=== PATIENT | male | born 1975 | race Caucasian/White ===

== ENCOUNTER → 2024-05-24 | Outpatient (CLI) | payer OTHER ==
[~2024-05-24] MED LIST: Naprosyn500 MG PO
[2024-05-25 20:30] LABS: COTININE, URN, SCREEN Negative ng/mL (Cutoff 100)
== END ==
LOC: LAB SHORT 15:24 → LAB 15:24 → LAB FUT 05-18 16:40
PROVIDERS: Podiatrist Foot & Ankle Surgery
DX: Z87.891 Personal history of nicotine dependence (principal)

== ENCOUNTER 2024-09-22 06:06 | Day surgery (SDC) | payer OTHER ==
[~2024-09-22] VITALS: Ht 165.1 cm; Wt 70.7 kg
[2024-09-22] MEDS ORDERED: Dexamethasone Sod Phos 10 MG/ML 1ML VIAL ONE (06:20)
[2024-09-22] MEDS ORDERED: Ondansetron HCl 2 MG / ML 2ML Vial ONE (06:20)
[2024-09-22] MEDS ORDERED: Ketorolac Tromethamine 30mg Vial ONE (06:20)
[2024-09-22] MEDS ORDERED: FentaNYL Citrate 50 MCG/ML 2 ML Injection ONE ×3 (06:21→09:28)
[2024-09-22] MEDS ORDERED: propofoL 20 ML IV ONE (06:21)
[2024-09-22] MEDS ORDERED: ESCI10 PO (06:44)
[2024-09-22] MEDS ORDERED: CeFAZolin Sodium 2,000 MG VIAL ONE (06:46)
[2024-09-22] MEDS ORDERED: Ropivacaine 0.5% HCL/PF 5 MG/ML 30ML Vial ONE (06:57)
[2024-09-22] MEDS ORDERED: Lactated Ringer's 1,000 ML IV ONE ×3 (07:00→09:55)
[2024-09-22] MEDS ORDERED: CeFAZolin Sodium 1000 mg Vial ONE (07:33)
[2024-09-22] MEDS ORDERED: EPINEPhrine HCl 1 MG/ML 1ML Amp XX ONE (07:34)
[2024-09-22] MEDS ORDERED: OxyCODONE 5 mg/Acetamin 325 mg TABLET ONE (10:19)
--- NOTE | 2024-09-22 11:41 | NUR ---
09/22/24 1141 Isael Gutierrez PT FREQUENTLY MOVING ARM DURING RECOVERY. HE REPORTED TOLERABLE 6/10 PAIN UPON D/C (FLACC 2/10) AND DENIED NAUSEA. HE APPEARED ALERT AND RELAXED UPON D/C. PT WAS INSTRUCTED TO MONITOR B/P AT HOME AND FOLLOW UP WITH PCP IF NEEDED.
[2024-09-22 11:42] VITALS: BP 161/90
== END 2024-09-22 10:58 | disposition home or self-care (01) ==
LOC: ORSCSDS 06:06
PROVIDERS: Podiatrist Foot & Ankle Surgery
PROC: 0SGM04Z Fusion of Right Metatarsal-Phalangeal Joint with Internal Fixation Device, Open Approach (ICD-10-PCS; principal; 2024-09-22 07:30)
PROC: 0SGK04Z Fusion of Right Tarsometatarsal Joint with Internal Fixation Device, Open Approach (ICD-10-PCS; principal; 2024-09-22 07:30)
PROC: 0SGP04Z Fusion of Right Toe Phalangeal Joint with Internal Fixation Device, Open Approach (ICD-10-PCS; principal; 2024-09-22 07:30)
DX: M21.611 Bunion of right foot (principal); M20.21 Hallux rigidus, right foot; M20.41 Other hammer toe(s) (acquired), right foot; F32.A Depression, unspecified; Z79.899 Other long term (current) drug therapy
CPT/HCPCS: A9270; C1713; J0171; J0690; J1100; J1885; J2405; J2704; J2795; J3010; J7120

== ENCOUNTER 2025-04-20 10:01 | Day surgery (SDC) | payer OTHER ==
[~2025-04-20] VITALS: Ht 165.1 cm; Wt 68.1 kg
[~2025-04-20 10:01] MED LIST changes: +ESCI10 PO
[2025-04-20] MEDS ORDERED: CeFAZolin Sodium 2,000 MG VIAL ONE (10:21)
[2025-04-20] MEDS ORDERED: Cymbalta20 MG PO (10:41)
[2025-04-20] MEDS ORDERED: Bupivacaine 0.5% W/EPI 1:200000 SDV 30 ML Vial ONE (10:49)
[2025-04-20] MEDS ORDERED: FentaNYL Citrate 50 MCG/ML 2 ML Injection ONE (12:12)
[2025-04-20] MEDS ORDERED: Ketorolac Tromethamine 30mg Vial ONE (12:29)
--- NOTE | 2025-04-20 12:49 | NUR ---
04/20/25 Rick Thrasher PT'S 02 97% ON RA. VSS. CAP REFILL ON SURGICAL LIMB LESS THAN THREE SECONDS. PT DENIES PAIN AND NAUSEA AT THIS TIME.
[2025-04-20 12:58] VITALS: BP 112/81
--- NOTE | 2025-04-20 13:45 | NUR ---
04/20/25 1345 Rick Tellez PT DENIES PAIN AND NAUSEA AT THIS TIME. PT AGREEABLE TO D/C HOME WITH DERICK.
== END 2025-04-20 13:43 | disposition home or self-care (01) ==
LOC: ORSCSDS 10:01
PROVIDERS: Podiatrist Foot & Ankle Surgery
PROC: 0Y6R0Z1 Detachment at Right 2nd Toe, High, Open Approach (ICD-10-PCS; principal; 2025-04-20 12:00)
DX: M20.5X1 Other deformities of toe(s) (acquired), right foot (principal); Z79.899 Other long term (current) drug therapy
CPT/HCPCS: 88305; 88311; A6253; J0690; J1885; J2704; J3010; J7120

== ENCOUNTER → 2025-04-26 | Outpatient (CLI) | payer OTHER ==
[~2025-04-26] MED LIST changes: +Cymbalta20 MG PO
[2025-04-26 16:20] LABS: BASOPHILS ABSOLUTE AUTO 0.05 K/mm3 (0.00-0.23); BASOPHILS PERCENT AUTO 1 % (0-2); EOSINOPHILS ABSOLUTE AUTO 0.31 K/mm3 (0.00-0.68); EOSINOPHILS PERCENT AUTO 4 % (0-6); Hematocrit 40.6 % (37.0-53.0); Hemoglobin 15.1 g/dL (13.5-17.5); IMMATURE GRAN ABSOLUTE AUTO 0.03 K/mm3 (0.00-0.10); IMMATURE GRAN PERCENT AUTO 0 % (0-1); LYMPHOCYTES ABSOLUTE AUTO 1.41 K/mm3 (0.84-5.20); LYMPHOCYTES PERCENT AUTO 18 % (21-46); MONOCYTES ABSOLUTE AUTO 0.48 K/mm3 (0.16-1.47); MONOCYTES PERCENT AUTO 6 % (4-13); Mean Corpuscular HGB Conc 37.2 g/dL (31.5-36.5); Mean Corpuscular Volume 90 fL (80-100); NEUTROPHILS ABSOLUTE AUTO 5.53 K/mm3 (1.96-9.15); NEUTROPHILS PERCENT AUTO 71 % (41-73); NRBC ABSOLUTE 0.00 K/mm3 (0.00-0.02); NRBC Auto 0.0 /100 WBC (0.0-0.2); Platelet Count 202 K/mm3 (150-400); RDW Coefficient Variation 14.8 % (11.7-14.2); RDW Standard Deviation 48.5 fL (35.1-46.3)
[2025-04-26 16:42] LABS: Alanine Aminotransfer (ALT/SGP 26.0 U/L (12-78); Albumin, Blood 4.2 g/dL (3.4-5.0); Albumin/Globulin Ratio 1.1 (0.8-1.8); Anion Gap 14.0 mmol/L (6-16); Aspartate Aminotrans (AST/SGOT 17.0 U/L (12-37); Bilirubin, Total 1.7 mg/dL (0.1-1.0); Blood Urea Nitrogen 14.0 mg/dL (8-24); CO2, Blood 28.0 mmol/L (21-32); Calcium, Blood 9.3 mg/dL (8.5-10.1); Chloride, Blood 101.0 mmol/L (98-108); Creatinine, Blood 1.31 mg/dL (0.60-1.20); Globulin, Blood 3.8 g/dL (2.2-4.0); Glucose, Blood 120.0 mg/dL (70-99); Potassium, Blood 4.0 mmol/L (3.5-5.5); Sodium, Blood 139.0 mmol/L (136-145); Total Protein, Blood 8.0 g/dL (6.4-8.2)
== END ==
LOC: LAB 16:15 → LAB SHORT 16:15
PROVIDERS: Family Medicine
DX: R10.9 Unspecified abdominal pain (principal)
CPT/HCPCS: 80053; 85025